=== PATIENT | female | born 1995 | race Caucasian/White ===

== ENCOUNTER → 2022-01-14 19:05 | Observation (INO) ==
[2022-01-14 10:44] LABS: Basophils % 0.3 %; Eosinophils # 0.1 K/mcL (0.0-0.6); Eosinophils % 0.9 %; Hemoglobin 12.1 g/dL (11.5-15.4); Immature Granulocytes % 0.6 % (0-4); Lymphocytes % 18.1 %; Mean Corpuscular HGB Conc 31.8 g/dL (31.6-35.5); Mean Corpuscular Hemoglobin 26.3 pg (28.0-33.3); Mean Corpuscular Volume 82.6 fL (83.0-100.0); Mean Platelet Volume 10.6 fL (9.4-12.4); Monocytes # 0.5 K/mcL (0.0-1.3); Monocytes % 4.7 %; Neutrophils # 8.2 K/mcL (1.6-8.9); Platelet Count 188 K/mcL (140-400); Red Cell Distribution Width 14.2 % (11.5-14.5); Segmented Neutrophils % 75.4 %; White Blood Count 10.9 K/mcL (4.3-11.1)
[2022-01-14 10:55] LABS: Amphetamine Screen,Urine Negative ng/mL (Cutoff=1000); Barbiturate Screen,Urine Negative ng/mL (Cutoff=200); Benzodiazepines Screen,Urine Negative ng/mL (Cutoff=200); Cannabinoid Screen,Urine Negative ng/mL (Cutoff = 50); Cocaine Screen,Urine Negative ng/mL (Cutoff= 300); INR 1.1; Opiate Screen,Urine Negative ng/mL (Cutoff=300); Phencyclidine Screen,Urine Negative ng/mL (Cutoff=25); Prothrombin Time 12.2 Seconds (9.4-12.1)
[2022-01-14 10:56] LABS: Activated Partial Thrombo Time 28.3 Seconds (26.0-36.0)
== END | disposition home or self-care (01) ==
LOC: 1NENULAB
PROVIDERS: ADMIT Advanced Practice Midwife; ATTEND Advanced Practice Midwife

== ENCOUNTER → 2022-02-28 14:15 | Observation (INO) ==
[2022-02-28 09:59] LABS: Bacteria,Urine Few per hpf (None-Few); Bilirubin,Urine Negative (Negative); Blood,Urine Negative (Negative); Clarity,Urine Turbid (Clear); Color,Urine Light-Yellow (Yellow); Glucose,Urine (UA) Normal (Normal); Ketones,Urine Trace mg/dL (Negative); Leukocyte Esterase,Urine Large (Negative); Mucus,Urine Few per lpf (None-Few); Nitrite,Urine Negative (Negative); Protein,Urine Trace mg/dL (Neg-Trace); Specific Gravity,Urine 1.015 (1.010-1.025); Squamous Epithelial Cell,Urine Moderate per hpf (None-Few); Urobilinogen,Urine Normal (Normal); WBC,Urine 15-30 per hpf (0-3)
== END | disposition home or self-care (01) ==
LOC: 1NENULAB
PROVIDERS: ADMIT Advanced Practice Midwife; ATTEND Advanced Practice Midwife

== ENCOUNTER 2022-03-12 03:00 | Inpatient (IN) ==
[2022-03-12] MEDS ORDERED: Flu Vac QV 22-23 (6MOS UP)/PF 0.5 ML SYRINGE IM ONE (05:57)
[2022-03-12 07:31] LABS: Amphetamine Screen,Urine Negative ng/mL (Cutoff=1000); Barbiturate Screen,Urine Negative ng/mL (Cutoff=200); Creatinine,Urine 132 mg/dL; Protein/Creatinine Ratio,Urine 0.17 mg/mg (0.00-0.20)
[2022-03-12 07:32] LABS: Alanine Aminotransferase 9 Units/L (7-52); Aspartate Amino Transferase 14 Units/L (13-39); BUN/Creatinine Ratio 14 (6-26); Benzodiazepines Screen,Urine Negative ng/mL (Cutoff=300); Blood Urea Nitrogen 9 mg/dL (6-20); Cannabinoid Screen,Urine Negative ng/mL (Cutoff = 50); Cocaine Screen,Urine Negative ng/mL (Cutoff= 300); Opiate Screen,Urine Negative ng/mL (Cutoff=300); Phencyclidine Screen,Urine Negative ng/mL (Cutoff=25)
[2022-03-12 07:33] LABS: Uric Acid 4.9 mg/dL (2.3-7.6)
[2022-03-12 07:47] LABS: Basophils % 0.3 %; Eosinophils # 0.2 K/mcL (0.0-0.6); Eosinophils % 1.6 %; Hematocrit 35.4 % (35.3-44.9); Immature Granulocytes % 1.1 % (0-4); Lymphocytes # 2.9 K/mcL (0.6-4.6); Lymphocytes % 23.4 %; Mean Corpuscular HGB Conc 31.1 g/dL (31.6-35.5); Mean Corpuscular Hemoglobin 25.2 pg (28.0-33.3); Mean Corpuscular Volume 81.2 fL (83.0-100.0); Mean Platelet Volume 11.9 fL (9.4-12.4); Monocytes # 0.6 K/mcL (0.0-1.3); Monocytes % 5.1 %; Neutrophils # 8.4 K/mcL (1.6-8.9); Platelet Count 199 K/mcL (140-400); Red Blood Count 4.36 M/mcL (3.82-4.97); Red Cell Distribution Width 14.9 % (11.5-14.5); Segmented Neutrophils % 68.5 %; White Blood Count 12.2 K/mcL (4.3-11.1)
[2022-03-12 07:56] LABS: Lactate Dehydrogenase 239 Units/L (140-271)
[2022-03-12] MEDS ORDERED: Oxytocin 30 UNIT/503 ML BAG IVC SCH ×2 (09:15→15:15)
[2022-03-12] MEDS ORDERED: Azithromycin 500 MG in 0.9 % Sodium Chloride 250 ML IVPB PRN (10:02)
[2022-03-12] MEDS ORDERED: Naloxone 0.4 MG/ML INJ IVP PRN (10:02)
[2022-03-12] MEDS ORDERED: Ondansetron 4 MG/2 ML VIAL IVP PRN (10:02)
[2022-03-12] MEDS ORDERED: Metoclopramide 10 MG/2 ML VIAL IVP PRN (10:02)
[2022-03-12] MEDS ORDERED: Famotidine 20 MG/2 ML VIAL IVP PRN (10:02)
[2022-03-12] MEDS ORDERED: D5% in Lactated Ringers 1,000 ML IVC SCH (10:15)
[2022-03-12] MEDS ORDERED: miSOPROStoL 25 MCG TABLET VG ONE (10:51)
[2022-03-12] MEDS ORDERED: Ringers Solution, Lactated 1,000 ML ONE ×3 (11:14→22:19)
[2022-03-12] MEDS ORDERED: Penicillin G Potassium 5,000,000 UNIT in 0.9 % Sodium Chloride Mini Bag 100 ML IVPB ONE (12:00)
[2022-03-12] MEDS ORDERED: Ropivacaine/PF 0.2% 20 ML VIAL EP ONE (14:31)
[2022-03-12] MEDS ORDERED: EPHEDrine sulfate 50 MG/10 ML VIAL IVP PRN (14:31)
[2022-03-12] MEDS ORDERED: *HR* FentaNYL (PF) 100 MCG/2 ML VIAL EP ONE (14:31)
[2022-03-12] MEDS: Penicillin G Potassium 2,500,000 UNIT/105 ML MLS IVPB SCH (15:55)
[2022-03-12] MEDS: Epidural Premix (fent/bupiv) 110 ML EP SCH (16:52)
[2022-03-12] MEDS ORDERED: Ropivacaine/PF 0.2% 20 ML VIAL ONE (17:26)
[2022-03-12] MEDS ORDERED: *HR* FentaNYL (PF) 100 MCG/2 ML VIAL ONE (17:27)
[2022-03-13] MEDS: Penicillin G Potassium 2,500,000 UNIT/105 ML MLS IVPB SCH ×3 (02:33→10:17)
[2022-03-13] MEDS: Epidural Premix (fent/bupiv) 110 ML EP SCH ×2 (02:33→07:00)
[2022-03-13] MEDS ORDERED: Ropivacaine/PF 0.2% 20 ML VIAL ONE (07:44)
[2022-03-13] MEDS ORDERED: Ringers Solution, Lactated 1,000 ML ONE (10:07)
[2022-03-13] MEDS ORDERED: Lanolin 7 G OINT...G. TP PRN (16:16)
[2022-03-13] MEDS ORDERED: Oxytocin 30 UNIT/503 ML BAG IVC SCH (16:16)
[2022-03-13] MEDS ORDERED: Rho Immune Globulin 1,500 UNIT SYRINGE IM PRN (16:16)
[2022-03-13] MEDS ORDERED: Ondansetron ODT 4 MG TAB.RAPDIS SL PRN (16:16)
[2022-03-13] MEDS ORDERED: Benzocaine/Menthol 56 GM AEROSOL SPRAY TP PRN (16:16)
[2022-03-13] MEDS ORDERED: OXYTOCIN/RINGERS LACTATE 10 UNIT/166.6 ML BAG IVC ONE (16:16)
[2022-03-13] MEDS: Ibuprofen 600 MG TABLET PO SCH ×2 (17:20→23:42)
[2022-03-13] MEDS ORDERED: Ibuprofen 600 MG TABLET PO SCH (19:14)
[2022-03-13] MEDS: Acetaminophen 325 MG TABLET PO SCH (19:59)
[2022-03-14] MEDS: Acetaminophen 325 MG TABLET PO SCH ×2 (02:55→08:58)
[2022-03-14 04:43] VITALS: O2SAT 98
[2022-03-14] MEDS: Ibuprofen 600 MG TABLET PO SCH ×2 (05:37→12:18)
[2022-03-14 07:57] VITALS: BP 120/82; PULSE 84; TEMP 97.6
[2022-03-14] MEDS ORDERED: Prenatal Vit/FA 1 EACH TABLET PO SCH (09:00)
== END 2022-03-14 16:30 | disposition home or self-care (01) | DRG 560 ==
LOC: 1NENULAB 05:29 → 1NENUOBS 03-13 15:42
PROVIDERS: ADMIT Student in an Organized Health Care Education/Training Program; ATTEND Student in an Organized Health Care Education/Training Program